=== PATIENT | female | born 1995 | race Caucasian/White ===

== ENCOUNTER 2024-02-03 16:39 | Emergency (ER) | payer OTHER ==
[~2024-02-03] VITALS: Ht 170.2 cm; Wt 95.0 kg
[2024-02-03 17:14] VITALS: O2SAT 98
[2024-02-03] MEDS: ACETAMINOPHEN 325MG TABLET PO ONE (20:39)
[2024-02-03] MEDS ORDERED: NAPR-1176 MT (20:41)
[2024-02-03] MEDS: LIDOCAINE 5% PATCH TOP SCH (20:41)
[2024-02-03] MEDS ORDERED: LIDO700A15 TP (20:41)
[2024-02-03 21:14] VITALS: BP 130/55; PULSE 78; RESP 18; TEMP 98.5
== END 2024-02-03 21:22 | disposition home or self-care (01) ==
LOC: ER 16:39
DX: S00.31XA Abrasion of nose, initial encounter (principal); M54.9 Dorsalgia, unspecified; Z98.890 Other specified postprocedural states; Z90.49 Acquired absence of other specified parts of digestive tract; V98.8XXA Other specified transport accidents, initial encounter; Y93.89 Activity, other specified; Y92.89 Other specified places as the place of occurrence of the external cause; Y99.8 Other external cause status
CPT/HCPCS: 99283